=== PATIENT | female | born 1960 | race African-American/Black ===

== ENCOUNTER 2020-12-07 11:30 | Emergency (ER) | payer MEDICARE, MEDICAID ==
[~2020-12-07] VITALS: Ht 165.1 cm; Wt 77.0 kg
[~2020-12-07 11:30] MED LIST: AMLO10TA80 PO; ASPI-1497 PO; LEVO250T58 MT; LOSA25TA3 MT; METF-874 MT; METO25TA6 MT; OMEP40CA12 MT
[2020-12-07 13:19] LABS: BASOPHILS % 1.5 % (0.0-2.0); EOSINOPHILS % 5.1 % (0.0-5.0); HEMOGLOBIN. 8.7 g/dL (12.0-16.0); LYMPHOCYTES % 26.9 % (20.0-50.0); MEAN CORPUSCULAR HEMOGLOBIN 30.5 pg (28.0-32.0); MEAN CORPUSCULAR VOLUME 90.8 fL (81.0-99.0); MEAN PLATELET VOLUME 7.1 fl (7.4-10.4); MONOCYTES % 9.6 % (2.0-8.0); NEUTROPHILS % 56.9 % (40.0-76.0); PLATELET 249 x1000/uL (130-400); RED BLOOD CELL COUNT 2.86 mill/uL (4.2-5.4); RED CELL DISTRIBUTION WIDTH 14.9 % (11.6-14.6)
[2020-12-07 13:26] LABS: PROTHROMBIN TIME 11.1 sec (9.6-11.0)
[2020-12-07 16:09] VITALS: BP 135/58
== END 2020-12-07 16:09 | disposition home or self-care (01) ==
LOC: ER 11:30
DX: D64.9 Anemia, unspecified (principal); I12.0 Hypertensive chronic kidney disease with stage 5 chronic kidney disease or end stage renal disease; E11.22 Type 2 diabetes mellitus with diabetic chronic kidney disease; N18.6 End stage renal disease; Z99.2 Dependence on renal dialysis; Z79.82 Long term (current) use of aspirin; Z79.84 Long term (current) use of oral hypoglycemic drugs; Z86.73 Personal history of transient ischemic attack (TIA), and cerebral infarction without residual deficits; Z98.890 Other specified postprocedural states
CPT/HCPCS: 36415; 80048; 85025; 86850; 86900; 99283

== ENCOUNTER 2020-12-10 07:25 | Inpatient (IN) | payer MEDICARE, MEDICAID ==
[~2020-12-10] VITALS: Ht 162.6 cm; Wt 82.6 kg
[2020-12-10] MEDS ORDERED: NITROGLYCERIN 0.4MG TABLET SL SL PRN (08:15)
[2020-12-10] MEDS ORDERED: ASPIRIN 81MG TABLET PO ONE (08:15)
[2020-12-10 08:48] LABS: BASOPHILS % 0.8 % (0.0-2.0); EOSINOPHILS % 4.1 % (0.0-5.0); HEMATOCRIT. 25.7 % (36.0-48.0); HEMOGLOBIN. 8.2 g/dL (12.0-16.0); LYMPHOCYTES % 14.4 % (20.0-50.0); MEAN CORPUSCULAR HEMOGLOBIN 30.2 pg (28.0-32.0); MONOCYTES % 8.2 % (2.0-8.0); NEUTROPHILS % 72.5 % (40.0-76.0); PLATELET 229 x1000/uL (130-400); RED BLOOD CELL COUNT 2.73 mill/uL (4.2-5.4); RED CELL DISTRIBUTION WIDTH 15.1 % (11.6-14.6)
[2020-12-10 08:49] LABS: CHLORIDE 109 mEq/L (98-107)
[2020-12-10] MEDS ORDERED: HEPARIN 25,000 UNITS PREMIX 250 ML IV STA (09:43)
[2020-12-10] MEDS ORDERED: HEPARIN 5000 UNITS/ML VIAL IV ONE (09:45)
[2020-12-10 10:37] LABS: INR 1.1; PARTIAL THROMBOPLASTIN TIME 28.1 sec (23.4-31.0); PROTHROMBIN TIME 11.3 sec (9.6-11.0)
[2020-12-10] MEDS ORDERED: ACETAMINOPHEN 325MG TABLET PO PRN (14:00)
[2020-12-10] MEDS ORDERED: ONDANSETRON HCL 4MG/2ML INJ IV PRN (14:00)
[2020-12-10] MEDS: LOSARTAN POTASSIUM 25 MG TABLET PO SCH (14:30)
[2020-12-10] MEDS ORDERED: ENOXAPARIN 30MG/0.3ML SYR SUBCUT SCH (15:00)
[2020-12-10 16:15] VITALS: BP 159/69
[2020-12-10] MEDS ORDERED: HEPARIN BOLUS PRN aPTT <30 IV ×2 (16:45)
[2020-12-10] MEDS ORDERED: HEPARIN 25,000 UNITS PREMIX 250 ML IV SCH ×2 (16:45)
[2020-12-10] MEDS ORDERED: HEPARIN BOLUS PRN aPTT 30-44 IV ×2 (16:45)
[2020-12-10] MEDS ORDERED: HEPARIN 60 UNITS/KG BOLUS IV NR ×2 (16:45)
[2020-12-10] MEDS: AMLODIPINE 10MG TABLET PO SCH (16:52)
[2020-12-10] MEDS: ASPIRIN 81MG EC TABLET PO SCH (16:56)
[2020-12-10 17:44] LABS: HEPATITIS B SURFACE ANTIGEN NEGATIVE
[2020-12-10 18:00] VITALS: BP 168/56
[2020-12-10] MEDS: METOPROLOL TARTRATE 25MG TABLET PO SCH (18:00)
[2020-12-10 18:09] LABS: CREATINE KINASE MB FRACTION 3.3 ng/mL (0.5-3.6)
[2020-12-10 20:00] VITALS: BP 136/69
[2020-12-10 22:00] VITALS: BP 127/65
[2020-12-11] VITALS (12 sets, daily range): BP systolic 118–174; BP diastolic 48–93
[2020-12-11 00:41] LABS: CREATINE KINASE MB FRACTION 2.8 ng/mL (0.5-3.6)
[2020-12-11] MEDS: CLONIDINE 0.1MG TABLET PO PRN ×2 (04:23→08:41)
[2020-12-11 06:50] LABS: BASOPHILS % 1.1 % (0.0-2.0); EOSINOPHILS % 5.4 % (0.0-5.0); HEMOGLOBIN. 8.6 g/dL (12.0-16.0); LYMPHOCYTES % 22.9 % (20.0-50.0); MEAN CORPUSCULAR HEMOGLOBIN 30.2 pg (28.0-32.0); MEAN CORPUSCULAR VOLUME 94.8 fL (81.0-99.0); MEAN PLATELET VOLUME 7.1 fl (7.4-10.4); MONOCYTES % 8.7 % (2.0-8.0); NEUTROPHILS % 61.9 % (40.0-76.0); PLATELET 246 x1000/uL (130-400); RED BLOOD CELL COUNT 2.84 mill/uL (4.2-5.4); RED CELL DISTRIBUTION WIDTH 15.1 % (11.6-14.6)
[2020-12-11 07:12] LABS: PHOSPHORUS 3.8 mg/dL (2.5-4.9)
[2020-12-11] MEDS: ASPIRIN 81MG EC TABLET PO SCH (08:41)
[2020-12-11] MEDS: OMEPRAZOLE 20MG CAPSULE EXTENDED RELEASE PO SCH (08:41)
[2020-12-11] MEDS: AMLODIPINE 10MG TABLET PO SCH (08:41)
[2020-12-11] MEDS: LOSARTAN POTASSIUM 25 MG TABLET PO SCH (08:41)
[2020-12-11] MEDS: METOPROLOL TARTRATE 25MG TABLET PO SCH (08:42)
[2020-12-11] MEDS ORDERED: HYDRALAZINE 20MG/ML VIAL IV PRN (10:45)
[2020-12-11] MEDS: FERROUS SULFATE 325MG TABLET PO SCH ×2 (13:24→17:53)
[2020-12-11] MEDS: CLOPIDOGREL 75MG TABLET PO SCH (13:24)
[2020-12-11] MEDS: HYDRALAZINE HCL 50MG TABLET PO SCH ×3 (13:25→20:59)
[2020-12-11] MEDS ORDERED: HYDROCODONE/ACETAMINOPHEN 5/325MG TABLET PO PRN (16:15)
[2020-12-11] MEDS ORDERED: NALOXONE HCL 0.4MG/ML VIAL IV PRN (16:15)
[2020-12-11] MEDS ORDERED: ENOXAPARIN 80MG/0.8ML SYR SUBCUT NR (20:00)
[2020-12-11] MEDS: EPOETIN ALFA-EPBX 4,000 UNIT/ML VIAL SUBCUT SCH (20:52)
[2020-12-11] MEDS: CARVEDILOL 3.125 MG TABLET PO SCH (20:54)
[2020-12-11] MEDS: ATORVASTATIN CALCIUM 40MG TABLET PO SCH (20:54)
[2020-12-12] VITALS (11 sets, daily range): BP systolic 71–167; BP diastolic 56–105
[2020-12-12 05:19] LABS: BASOPHILS % 0.9 % (0.0-2.0); EOSINOPHILS % 7.2 % (0.0-5.0); HEMATOCRIT. 25.4 % (36.0-48.0); HEMOGLOBIN. 8.2 g/dL (12.0-16.0); LYMPHOCYTES % 26.8 % (20.0-50.0); MEAN CORPUSCULAR HEMOGLOBIN 30.8 pg (28.0-32.0); MEAN CORPUSCULAR VOLUME 95.4 fL (81.0-99.0); MEAN PLATELET VOLUME 7.1 fl (7.4-10.4); MONOCYTES % 10.9 % (2.0-8.0); NEUTROPHILS % 54.2 % (40.0-76.0); PLATELET 237 x1000/uL (130-400); RED BLOOD CELL COUNT 2.66 mill/uL (4.2-5.4); RED CELL DISTRIBUTION WIDTH 15.3 % (11.6-14.6)
[2020-12-12] MEDS: HYDRALAZINE HCL 50MG TABLET PO SCH ×3 (05:55→21:08)
[2020-12-12] MEDS: OMEPRAZOLE 20MG CAPSULE EXTENDED RELEASE PO SCH (09:10)
[2020-12-12] MEDS: ASPIRIN 81MG EC TABLET PO SCH (09:10)
[2020-12-12] MEDS: AMLODIPINE 10MG TABLET PO SCH (09:10)
[2020-12-12] MEDS: CLOPIDOGREL 75MG TABLET PO SCH (09:10)
[2020-12-12] MEDS: FERROUS SULFATE 325MG TABLET PO SCH ×4 (09:10→18:23)
[2020-12-12] MEDS: LOSARTAN POTASSIUM 25 MG TABLET PO SCH (09:11)
[2020-12-12] MEDS: CARVEDILOL 3.125 MG TABLET PO SCH ×2 (09:11→21:00)
[2020-12-12] MEDS ORDERED: MIDAZOLAM HCL 2 MG/2 ML VIAL ONE (12:48)
[2020-12-12] MEDS ORDERED: LIDOCAINE HCL 1% 20ML VIAL (Pyxis) INJ ONE ×2 (12:49→13:25)
[2020-12-12] MEDS ORDERED: IODIXANOL 320MG/ML 100 ML BOTTLE IV ONE ×2 (12:49→12:52)
[2020-12-12] MEDS ORDERED: FENTANYL CITRATE/PF 50MCG/ML 2ML VIAL ONE (12:49)
[2020-12-12] MEDS ORDERED: HEPARIN SODIUM 1,000 UNIT/1ML VIAL IV ONE (13:41)
[2020-12-12] MEDS ORDERED: NICARDIPINE 100MCG/ML 10ML VIAL (CATH LAB) IV ONE (13:41)
[2020-12-12] MEDS ORDERED: NITROGLYCERIN 50MCG/ML 10ML VIAL (CATH LAB) IV ONE (13:41)
[2020-12-12] MEDS ORDERED: ACETAMINOPHEN 325MG TABLET PO PRN ×2 (13:45→16:45)
[2020-12-12] MEDS ORDERED: ATROPINE SULFATE 1MG/10ML SYR IV PRN (13:45)
[2020-12-12] MEDS ORDERED: DEXTROSE 50% WATER 50ML SYRINGE IV PRN (21:00)
[2020-12-12] MEDS: BLOOD SUGAR DIAGNOSTIC STRIP TEST SCH (21:00)
[2020-12-12] MEDS: INSULIN LISPRO 100 UNITS/ML SUBCUT SCH (21:00)
[2020-12-12] MEDS: ATORVASTATIN CALCIUM 40MG TABLET PO SCH (21:11)
[2020-12-13] VITALS (12 sets, daily range): BP systolic 129–165; BP diastolic 32–116
[2020-12-13 01:33] LABS: CLARITY URINE CLOUDY (CLEAR); COLOR URINE YELLOW (YELLOW); KETONES URINE NEGATIVE (NEGATIVE); LEUKOCYTE ESTERASE URINE 1+ (NEGATIVE); NITRITE URINE NEGATIVE (NEGATIVE); OCCULT BLOOD URINE TRACE (NEGATIVE); PH URINE 8.5 (4.5-8.0); PROTEIN URINE 2+ (NEGATIVE); SPECIFIC GRAVITY URINE 1.011 (1.005-1.030)
[2020-12-13 02:01] LABS: *AMPHETAMINES SCREEN URINE NEGATIVE (NEGATIVE); *BARBITURATES SCREEN URINE NEGATIVE (NEGATIVE); *BENZODIAZEPINES SCREEN URINE PRESUMTIVE POSITIVE (NEGATIVE); *COCAINE SCREEN URINE NEGATIVE (NEGATIVE); CANNABINOID URINE SCREEN NEGATIVE (NEGATIVE); METHADONE URINE SCREEN NEGATIVE (NEGATIVE); OPIATES URINE SCREEN NEGATIVE (NEGATIVE)
[2020-12-13 02:04] LABS: PHENCYCLIDINE URINE SCREEN NEGATIVE (NEGATIVE)
[2020-12-13] MEDS: HYDRALAZINE HCL 50MG TABLET PO SCH ×3 (06:29→21:46)
[2020-12-13] MEDS: OMEPRAZOLE 20MG CAPSULE EXTENDED RELEASE PO SCH (06:30)
[2020-12-13] MEDS: INSULIN LISPRO 100 UNITS/ML SUBCUT SCH ×4 (06:30→21:00)
[2020-12-13] MEDS: BLOOD SUGAR DIAGNOSTIC STRIP TEST SCH ×4 (06:30→21:00)
[2020-12-13] MEDS: CARVEDILOL 3.125 MG TABLET PO SCH ×3 (08:41→21:46)
[2020-12-13] MEDS: FERROUS SULFATE 325MG TABLET PO SCH ×3 (08:41→17:53)
[2020-12-13] MEDS: AMLODIPINE 10MG TABLET PO SCH (08:41)
[2020-12-13] MEDS: LOSARTAN POTASSIUM 25 MG TABLET PO SCH (08:41)
[2020-12-13] MEDS: ASPIRIN 81MG EC TABLET PO SCH (08:41)
[2020-12-13 10:36] LABS: BASOPHILS % 0.8 % (0.0-2.0); EOSINOPHILS % 3.7 % (0.0-5.0); HEMATOCRIT. 28.1 % (36.0-48.0); HEMOGLOBIN. 9.1 g/dL (12.0-16.0); LYMPHOCYTES % 11.3 % (20.0-50.0); MEAN CORPUSCULAR HEMOGLOBIN 29.9 pg (28.0-32.0); MEAN CORPUSCULAR VOLUME 92.2 fL (81.0-99.0); MEAN PLATELET VOLUME 7.2 fl (7.4-10.4); MONOCYTES % 7.7 % (2.0-8.0); NEUTROPHILS % 76.5 % (40.0-76.0); PLATELET 255 x1000/uL (130-400); RED BLOOD CELL COUNT 3.05 mill/uL (4.2-5.4); RED CELL DISTRIBUTION WIDTH 15.3 % (11.6-14.6)
[2020-12-13] MEDS: ATORVASTATIN CALCIUM 40MG TABLET PO SCH (21:45)
[2020-12-13] MEDS: EPOETIN ALFA-EPBX 4,000 UNIT/ML VIAL SUBCUT SCH (21:47)
[2020-12-14] VITALS (15 sets, daily range): BP systolic 114–185; BP diastolic 41–84
[2020-12-14] MEDS: HYDRALAZINE HCL 50MG TABLET PO SCH ×3 (05:27→21:40)
[2020-12-14] MEDS: BLOOD SUGAR DIAGNOSTIC STRIP TEST SCH ×4 (06:03→20:25)
[2020-12-14] MEDS: INSULIN LISPRO 100 UNITS/ML SUBCUT SCH ×4 (07:20→20:25)
[2020-12-14] MEDS: LOSARTAN POTASSIUM 25 MG TABLET PO SCH (09:08)
[2020-12-14] MEDS: FERROUS SULFATE 325MG TABLET PO SCH ×3 (09:08→18:31)
[2020-12-14] MEDS: CARVEDILOL 3.125 MG TABLET PO SCH ×2 (09:08→21:40)
[2020-12-14] MEDS: ASPIRIN 81MG EC TABLET PO SCH (09:08)
[2020-12-14] MEDS: AMLODIPINE 10MG TABLET PO SCH (09:08)
[2020-12-14] MEDS: FAMOTIDINE 20MG TABLET PO SCH (09:09)
[2020-12-14 10:52] LABS: BASOPHILS % 0.9 % (0.0-2.0); HEMATOCRIT. 34.9 % (36.0-48.0); HEMOGLOBIN. 11.6 g/dL (12.0-16.0); LYMPHOCYTES % 13.8 % (20.0-50.0); MEAN CORPUSCULAR HEMOGLOBIN 30.8 pg (28.0-32.0); MEAN CORPUSCULAR VOLUME 92.7 fL (81.0-99.0); MEAN PLATELET VOLUME 6.9 fl (7.4-10.4); MONOCYTES % 9.6 % (2.0-8.0); NEUTROPHILS % 70.7 % (40.0-76.0); PLATELET 214 x1000/uL (130-400); RED BLOOD CELL COUNT 3.76 mill/uL (4.2-5.4); RED CELL DISTRIBUTION WIDTH 14.9 % (11.6-14.6)
[2020-12-14] MEDS ORDERED: CHLORHEXIDINE GLUCONATE 4% EXTERNAL USE TOP SCH (21:00)
[2020-12-14] MEDS ORDERED: DOCUSATE SODIUM 100MG CAPSULE PO SCH (21:00)
[2020-12-14] MEDS ORDERED: BISACODYL 10MG SUPP PR PRN (21:00)
[2020-12-14] MEDS ORDERED: ASCORBIC ACID 500 MG TABLET PO SCH (21:00)
[2020-12-14] MEDS ORDERED: DIPHENHYDRAMINE 25MG CAPSULE PO PRN (21:00)
[2020-12-14] MEDS: ALLOPURINOL 300 MG TABLET PO SCH (21:40)
[2020-12-14] MEDS: ATORVASTATIN CALCIUM 40MG TABLET PO SCH (21:40)
[2020-12-15] VITALS (47 sets, daily range): BP systolic 20–166; BP diastolic 13–159
[2020-12-15] MEDS ORDERED: BACITRACIN 15GM TUBE TOP ONE (05:26)
[2020-12-15] MEDS ORDERED: THROMBIN (BOVINE) 5000 UNITS/VIAL TOP ONE (05:26)
[2020-12-15] MEDS ORDERED: POLYMYXIN B SULFATE 500000 UNITS/VIAL ONE (05:27)
[2020-12-15] MEDS ORDERED: DOPAMINE 400MG/250ML PREMIX 250 ML IV ONE (05:27)
[2020-12-15] MEDS ORDERED: HEPARIN 1000 UNITS/ML 10ML ONE (05:29)
[2020-12-15] MEDS: HYDRALAZINE HCL 50MG TABLET PO SCH ×3 (05:30→21:07)
[2020-12-15] MEDS: ALLOPURINOL 300 MG TABLET PO SCH (05:30)
[2020-12-15] MEDS ORDERED: NICARDIPINE 50 MG in NS 230 ML IV SCH (06:00)
[2020-12-15] MEDS ORDERED: AMINOCAPROIC ACID 5,000 MG in SODIUM CHLORIDE 0.9% 230 ML IV SCH (06:00)
[2020-12-15] MEDS ORDERED: PAPAVERINE HCL 180MG in SODIUM CHLORIDE 0.9% 24ML IV SCH (06:00)
[2020-12-15] MEDS ORDERED: NOREPINEPHRINE 8 MG in DEXT 5% WATER 242 ML IV SCH (06:00)
[2020-12-15] MEDS ORDERED: DEL NIDO ELECTROLYTE-S(PH 7.4) 1,000 ML IV SCH ×2 (06:00)
[2020-12-15] MEDS ORDERED: CEFAZOLIN 2,000 MG in DEXT 5% WATER 100 ML IV SCH (06:00)
[2020-12-15] MEDS ORDERED: EPINEPHRINE 5 MG in DEXT 5% WATER 245 ML IV SCH ×2 (06:00→12:00)
[2020-12-15] MEDS ORDERED: INSULIN REGULAR (DRIP) 100 UNITS in SODIUM CHLORIDE 0.9% 99 ML IV SCH (06:00)
[2020-12-15] MEDS: BLOOD SUGAR DIAGNOSTIC STRIP TEST SCH ×13 (06:12→23:00)
[2020-12-15] MEDS ORDERED: SKIN ADHESIVE 0.7 GM EA TOP ONE (07:01)
[2020-12-15] MEDS ORDERED: HYDROMORPHONE HCL/PF 2MG/ML (OR) ONE (07:10)
[2020-12-15] MEDS ORDERED: MIDAZOLAM HCL 2 MG/2 ML VIAL ONE (07:10)
[2020-12-15] MEDS ORDERED: HEPARIN 10,000 UNITS/ML VIAL ONE ×2 (07:13→13:24)
[2020-12-15 07:14] LABS: HEMATOCRIT 35.6 % (36.0-48.0); HEMOGLOBIN 11.7 g/dL (12.0-16.0); MEAN CORPUSCULAR HEMOGLOBIN 30.4 pg (28.0-32.0); MEAN CORPUSCULAR VOLUME 93.1 fL (81.0-99.0); PLATELET 232 x1000/uL (130-400); RED BLOOD CELL COUNT 3.83 mill/uL (4.2-5.4); RED CELL DISTRIBUTION WIDTH 15.3 % (11.6-14.6)
[2020-12-15] MEDS: FERROUS SULFATE 325MG TABLET PO SCH ×3 (07:20→18:17)
[2020-12-15] MEDS ORDERED: POTASSIUM CHLORIDE 10MEQ IN WATER 50ML PREMIX IV ONE (08:53)
[2020-12-15] MEDS: AMLODIPINE 10MG TABLET PO SCH (09:00)
[2020-12-15] MEDS: CARVEDILOL 3.125 MG TABLET PO SCH ×2 (09:00→20:45)
[2020-12-15] MEDS ORDERED: CHLORHEXIDINE GLUCONATE 4% EXTERNAL USE TOP SCH (09:00)
[2020-12-15] MEDS: LOSARTAN POTASSIUM 25 MG TABLET PO SCH (09:00)
[2020-12-15] MEDS ORDERED: PROPOFOL 200MG/20ML VIAL IV ONE ×2 (09:08→10:09)
[2020-12-15] MEDS ORDERED: ONDANSETRON HCL 4MG/2ML INJ ONE (09:08)
[2020-12-15] MEDS ORDERED: DEXAMETHASONE 4MG/ML 1ML VIAL ONE (09:08)
[2020-12-15] MEDS ORDERED: DEXTROSE 50% WATER 50ML SYRINGE IV PRN ×2 (09:15)
[2020-12-15] MEDS ORDERED: KCL 10MEQ/50ML PREMIX 150 ML IV PRN (09:15)
[2020-12-15] MEDS ORDERED: KCL 10MEQ/50ML PREMIX 100 ML IV PRN (09:15)
[2020-12-15] MEDS ORDERED: KCL 10MEQ/50ML PREMIX 200 ML IV PRN (09:15)
[2020-12-15] MEDS ORDERED: ROCURONIUM BROMIDE 10MG/ML VIAL 5ML IV ONE ×2 (10:06→10:08)
[2020-12-15] MEDS ORDERED: ETOMIDATE 2MG/ML 10ML VIAL IV ONE (10:11)
[2020-12-15] MEDS ORDERED: NEOSTIGMINE METHYLSULFATE 1MG/ML 10 ML VIAL ONE (10:59)
[2020-12-15] MEDS ORDERED: MORPHINE SULFATE 2 MG/ML CPJ (NOT FOR IM USE) IV PRN (11:45)
[2020-12-15] MEDS ORDERED: MAGNESIUM 2 G PREMIX 50 ML IV PRN (11:45)
[2020-12-15] MEDS ORDERED: SODIUM CHLORIDE 0.9% 500 ML IV PRN (11:45)
[2020-12-15] MEDS ORDERED: KETOROLAC 30MG/ML VIAL IV PRN (11:45)
[2020-12-15] MEDS ORDERED: OXYCODONE HCL/ACETAMINOPHEN 5/325MG TABLET PO PRN (11:45)
[2020-12-15] MEDS ORDERED: MAGNESIUM SULFATE 3 GM in DEXT 5% WATER 100 ML IV PRN (11:45)
[2020-12-15] MEDS ORDERED: CALCIUM CHLORIDE 3,000 MG in DEXT 5% WATER 250 ML IV PRN (11:45)
[2020-12-15] MEDS ORDERED: FAMOTIDINE 20MG/2ML VIAL IV SCH (11:45)
[2020-12-15] MEDS ORDERED: MAGNESIUM 1 G PREMIX 100 ML IV PRN (11:45)
[2020-12-15] MEDS ORDERED: ONDANSETRON HCL 4MG/2ML INJ IV PRN (11:45)
[2020-12-15] MEDS ORDERED: ACETAMINOPHEN 325MG TABLET PO PRN (11:45)
[2020-12-15] MEDS ORDERED: ALBUMIN HUMAN 25GM/100ML (25%) IV PRN (11:45)
[2020-12-15] MEDS ORDERED: INSULIN REGULAR (DRIP) 100 UNITS in SODIUM CHLORIDE 0.9% 100 ML IV SCH (12:00)
[2020-12-15] MEDS: DOPAMINE 400MG/250ML PREMIX 250 ML IV SCH (12:12)
[2020-12-15] MEDS: DEXT 5%/0.45% NACL 1000ML 1,000 ML IV SCH (12:18)
[2020-12-15 12:47] LABS: BG BASE EXCESS -9.3 mmol/L (-2.0-2.0); BG CARBOXYHEMOGLOBIN 0.9 % (0.5-1.5); BG DEOXYHEMOGLOBIN 7.7 % (0.0-5.0); BG HCO3 ACT 19.7 mmol/L (22.0-26.0); BG METHEMOGLOBIN 0.3 % (0.0-1.5); BG OXYGEN SATURATION 92.2 % (92.0-98.5); BG OXYHEMOGLOBIN 91.1 % (94.0-97.0); BG PCO2 56.2 mmHg (35.0-45.0); BG PH 7.163 (7.350-7.450); BG PO2 81.8 mmHg (75.0-100.0); BG SAMPLE SITE RIGHT BRACHIAL; BG VENT MODE MASK - SIMPLE
[2020-12-15 12:49] LABS: BASOPHILS % 0.8 % (0.0-2.0); EOSINOPHILS % 0.9 % (0.0-5.0); HEMATOCRIT. 35.6 % (36.0-48.0); HEMOGLOBIN. 11.5 g/dL (12.0-16.0); LYMPHOCYTES % 11.6 % (20.0-50.0); MEAN CORPUSCULAR HEMOGLOBIN 30.3 pg (28.0-32.0); MEAN CORPUSCULAR VOLUME 93.9 fL (81.0-99.0); MEAN PLATELET VOLUME 6.8 fl (7.4-10.4); MONOCYTES % 5.3 % (2.0-8.0); NEUTROPHILS % 81.4 % (40.0-76.0); PLATELET 285 x1000/uL (130-400); RED BLOOD CELL COUNT 3.79 mill/uL (4.2-5.4); RED CELL DISTRIBUTION WIDTH 14.8 % (11.6-14.6)
[2020-12-15] MEDS ORDERED: SODIUM BICARBONATE 8.4% 1 MEQ/ML 50ML SYR IV SCH (13:15)
[2020-12-15] MEDS ORDERED: MAGNESIUM SULFATE 5GM/10ML VIAL IV ONE (13:24)
[2020-12-15 14:18] LABS: BG BASE EXCESS -6.9 mmol/L (-2.0-2.0); BG CARBOXYHEMOGLOBIN 0.5 % (0.5-1.5); BG DEOXYHEMOGLOBIN 9.2 % (0.0-5.0); BG FRACTION INSPIRED OXYGEN 60; BG HCO3 ACT 20.4 mmol/L (22.0-26.0); BG METHEMOGLOBIN 0.3 % (0.0-1.5); BG OXYGEN SATURATION 90.7 % (92.0-98.5); BG PCO2 48.9 mmHg (35.0-45.0); BG PH 7.239 (7.350-7.450); BG PO2 70.1 mmHg (75.0-100.0); BG SAMPLE SITE RIGHT RADIAL; BG TOTAL HEMOGLOBIN 11.2 g/dL (12.0-18.0); BG VENT MODE MASK - SIMPLE
[2020-12-15] MEDS: CLOPIDOGREL 75MG TABLET PO SCH (14:31)
[2020-12-15] MEDS: FAMOTIDINE 20MG TABLET PO SCH (14:31)
[2020-12-15] MEDS: ASPIRIN 81MG EC TABLET PO SCH (14:31)
[2020-12-15] MEDS: DOCUSATE SODIUM 100MG CAPSULE PO SCH (16:05)
[2020-12-15] MEDS: BACITRACIN 15GM TUBE TOP SCH (16:25)
[2020-12-15] MEDS: IPRATROPIUM/ALBUTEROL 0.5-3(2.5)MG/3ML NEB HHN SCH ×2 (17:58→20:23)
[2020-12-15 19:44] LABS: BG CARBOXYHEMOGLOBIN 0.4 % (0.5-1.5); BG DEOXYHEMOGLOBIN 6.2 % (0.0-5.0); BG FRACTION INSPIRED OXYGEN 32; BG HCO3 ACT 24.8 mmol/L (22.0-26.0); BG METHEMOGLOBIN 0.3 % (0.0-1.5); BG OXYGEN SATURATION 93.8 % (92.0-98.5); BG OXYHEMOGLOBIN 93.1 % (94.0-97.0); BG PCO2 41.1 mmHg (35.0-45.0); BG PH 7.399 (7.350-7.450); BG SAMPLE SITE RIGHT RADIAL; BG TOTAL HEMOGLOBIN 10.3 g/dL (12.0-18.0); BG VENT MODE NASAL CANNULA
[2020-12-15 19:59] LABS: HEMOGLOBIN. 7.6 g/dL (12.0-16.0); MEAN CORPUSCULAR HEMOGLOBIN 31.2 pg (28.0-32.0); MEAN CORPUSCULAR VOLUME 94.3 fL (81.0-99.0); MEAN PLATELET VOLUME 6.9 fl (7.4-10.4); PLATELET 128 x1000/uL (130-400); RED BLOOD CELL COUNT 2.44 mill/uL (4.2-5.4)
[2020-12-15 20:08] LABS: PHOSPHORUS 1.8 mg/dL (2.5-4.9)
[2020-12-15] MEDS: ATORVASTATIN CALCIUM 40MG TABLET PO SCH (20:45)
[2020-12-15] MEDS: OXYCODONE HCL/ACETAMINOPHEN 5/325MG TABLET PO PRN (21:06)
[2020-12-15 22:25] LABS: PLATELET ESTIMATE SLIGHTLY DECREASED
[2020-12-16] VITALS (75 sets, daily range): BP systolic 63–143; BP diastolic 34–100
[2020-12-16] MEDS: IPRATROPIUM/ALBUTEROL 0.5-3(2.5)MG/3ML NEB HHN SCH ×2 (00:40→04:18)
[2020-12-16] MEDS: BLOOD SUGAR DIAGNOSTIC STRIP TEST SCH ×17 (01:00→21:07)
[2020-12-16 05:09] LABS: BASOPHILS % 0.5 % (0.0-2.0); EOSINOPHILS % 0.2 % (0.0-5.0); HEMATOCRIT. 26.8 % (36.0-48.0); HEMOGLOBIN. 8.7 g/dL (12.0-16.0); LYMPHOCYTES % 11.9 % (20.0-50.0); MEAN CORPUSCULAR HEMOGLOBIN 30.6 pg (28.0-32.0); MEAN CORPUSCULAR VOLUME 93.8 fL (81.0-99.0); MONOCYTES % 12.5 % (2.0-8.0); NEUTROPHILS % 74.9 % (40.0-76.0); RED BLOOD CELL COUNT 2.86 mill/uL (4.2-5.4); RED CELL DISTRIBUTION WIDTH 15.3 % (11.6-14.6)
[2020-12-16 05:29] LABS: PHOSPHORUS 3.5 mg/dL (2.5-4.9)
[2020-12-16 05:55] LABS: MEAN PLATELET VOLUME 7.7 fl (7.4-10.4); PLATELET 162 x1000/uL (130-400)
[2020-12-16] MEDS: HYDRALAZINE HCL 50MG TABLET PO SCH ×3 (06:00→22:23)
[2020-12-16] MEDS ORDERED: SODIUM POLYSTYRENE SULFONATE 15 G/60 ML BOT PO ONE (06:15)
[2020-12-16] MEDS ORDERED: CEFAZOLIN 1000MG PREMIX 50 ML IV SCH (08:00)
[2020-12-16] MEDS: LOSARTAN POTASSIUM 25 MG TABLET PO SCH (08:16)
[2020-12-16] MEDS: AMLODIPINE 10MG TABLET PO SCH (08:16)
[2020-12-16] MEDS: CARVEDILOL 3.125 MG TABLET PO SCH ×2 (08:17→21:07)
[2020-12-16] MEDS: FERROUS SULFATE 325MG TABLET PO SCH ×3 (08:25→17:24)
[2020-12-16] MEDS: FAMOTIDINE 20MG TABLET PO SCH (08:25)
[2020-12-16] MEDS: ASPIRIN 81MG EC TABLET PO SCH (08:25)
[2020-12-16] MEDS: DOCUSATE SODIUM 100MG CAPSULE PO SCH (08:26)
[2020-12-16] MEDS: BACITRACIN 15GM TUBE TOP SCH ×2 (08:26→17:24)
[2020-12-16] MEDS: CLOPIDOGREL 75MG TABLET PO SCH (08:26)
[2020-12-16] MEDS: OXYCODONE HCL/ACETAMINOPHEN 5/325MG TABLET PO PRN (10:32)
[2020-12-16] MEDS: DOPAMINE 400MG/250ML PREMIX 250 ML IV SCH (11:17)
[2020-12-16] MEDS ORDERED: IPRATROPIUM/ALBUTEROL 0.5-3(2.5)MG/3ML NEB HHN PRN (12:45)
[2020-12-16] MEDS: DEXT 5%/0.45% NACL 1000ML 1,000 ML IV SCH (12:52)
[2020-12-16] MEDS ORDERED: FAMOTIDINE 20MG TABLET PO SCH (14:00)
[2020-12-16] MEDS ORDERED: ASPIRIN 81MG TABLET PO SCH (14:00)
[2020-12-16 15:36] LABS: BG BASE EXCESS 0.4 mmol/L (-2.0-2.0); BG CARBOXYHEMOGLOBIN 0.8 % (0.5-1.5); BG DEOXYHEMOGLOBIN 6.5 % (0.0-5.0); BG FRACTION INSPIRED OXYGEN 28; BG HCO3 ACT 24.8 mmol/L (22.0-26.0); BG METHEMOGLOBIN 0.3 % (0.0-1.5); BG OXYGEN SATURATION 93.4 % (92.0-98.5); BG OXYHEMOGLOBIN 92.4 % (94.0-97.0); BG PH 7.421 (7.350-7.450); BG PO2 68.8 mmHg (75.0-100.0); BG SAMPLE SITE RIGHT RADIAL; BG VENT MODE NASAL CANNULA
[2020-12-16] MEDS: INSULIN LISPRO 100 UNITS/ML SUBCUT SCH ×2 (17:20→21:25)
[2020-12-16] MEDS: DOCUSATE SODIUM 250MG CAPSULE PO SCH (17:24)
[2020-12-16] MEDS: ATORVASTATIN CALCIUM 40MG TABLET PO SCH (21:06)
[2020-12-17] VITALS (12 sets, daily range): BP systolic 91–127; BP diastolic 45–73
[2020-12-17] MEDS: HYDRALAZINE HCL 50MG TABLET PO SCH ×3 (05:25→22:00)
[2020-12-17 06:17] LABS: BASOPHILS % 0.4 % (0.0-2.0); EOSINOPHILS % 1.7 % (0.0-5.0); HEMATOCRIT. 30.3 % (36.0-48.0); HEMOGLOBIN. 9.6 g/dL (12.0-16.0); LYMPHOCYTES % 14.6 % (20.0-50.0); MEAN CORPUSCULAR HEMOGLOBIN 30.5 pg (28.0-32.0); MEAN CORPUSCULAR VOLUME 96.6 fL (81.0-99.0); MEAN PLATELET VOLUME 7.5 fl (7.4-10.4); MONOCYTES % 13.2 % (2.0-8.0); NEUTROPHILS % 70.1 % (40.0-76.0); PLATELET 167 x1000/uL (130-400); RED BLOOD CELL COUNT 3.14 mill/uL (4.2-5.4); RED CELL DISTRIBUTION WIDTH 15.5 % (11.6-14.6)
[2020-12-17] MEDS: BLOOD SUGAR DIAGNOSTIC STRIP TEST SCH ×4 (06:40→20:26)
[2020-12-17] MEDS: INSULIN LISPRO 100 UNITS/ML SUBCUT SCH ×4 (07:20→20:39)
[2020-12-17] MEDS: DOCUSATE SODIUM 250MG CAPSULE PO SCH ×2 (08:26→16:43)
[2020-12-17] MEDS: BACITRACIN 15GM TUBE TOP SCH ×2 (08:26→16:43)
[2020-12-17] MEDS: FERROUS SULFATE 325MG TABLET PO SCH ×3 (08:26→16:43)
[2020-12-17] MEDS: ASPIRIN 81MG EC TABLET PO SCH (08:26)
[2020-12-17] MEDS: CARVEDILOL 3.125 MG TABLET PO SCH ×2 (08:27→20:25)
[2020-12-17] MEDS: FAMOTIDINE 20MG TABLET PO SCH (08:27)
[2020-12-17] MEDS: CLOPIDOGREL 75MG TABLET PO SCH (08:27)
[2020-12-17 09:45] LABS: BG BASE EXCESS 0.8 mmol/L (-2.0-2.0); BG CARBOXYHEMOGLOBIN 0.3 % (0.5-1.5); BG DEOXYHEMOGLOBIN 10.1 % (0.0-5.0); BG FRACTION INSPIRED OXYGEN 21; BG HCO3 ACT 25.2 mmol/L (22.0-26.0); BG OXYGEN SATURATION 89.9 % (92.0-98.5); BG OXYHEMOGLOBIN 89.6 % (94.0-97.0); BG PCO2 39.4 mmHg (35.0-45.0); BG PH 7.424 (7.350-7.450); BG PO2 58.1 mmHg (75.0-100.0); BG SAMPLE SITE RIGHT RADIAL; BG VENT MODE ROOM AIR
[2020-12-17] MEDS ORDERED: MAGNESIUM 2 G PREMIX 50 ML IV ONE (13:30)
[2020-12-17] MEDS: ATORVASTATIN CALCIUM 40MG TABLET PO SCH (20:25)
[2020-12-17] MEDS: OXYCODONE HCL/ACETAMINOPHEN 5/325MG TABLET PO PRN (20:25)
[2020-12-18] VITALS (15 sets, daily range): BP systolic 87–187; BP diastolic 53–144
[2020-12-18] MEDS: HYDRALAZINE HCL 50MG TABLET PO SCH ×2 (05:35→15:09)
[2020-12-18] MEDS: OXYCODONE HCL/ACETAMINOPHEN 5/325MG TABLET PO PRN (05:55)
[2020-12-18] MEDS: BLOOD SUGAR DIAGNOSTIC STRIP TEST SCH ×3 (06:52→16:50)
[2020-12-18 07:01] LABS: BASOPHILS % 0.6 % (0.0-2.0); EOSINOPHILS % 8.2 % (0.0-5.0); HEMATOCRIT. 25.4 % (36.0-48.0); HEMOGLOBIN. 8.5 g/dL (12.0-16.0); LYMPHOCYTES % 19.8 % (20.0-50.0); MEAN CORPUSCULAR HEMOGLOBIN 30.5 pg (28.0-32.0); MEAN CORPUSCULAR VOLUME 91.3 fL (81.0-99.0); MEAN PLATELET VOLUME 7.1 fl (7.4-10.4); MONOCYTES % 12.4 % (2.0-8.0); PLATELET 195 x1000/uL (130-400); RED BLOOD CELL COUNT 2.78 mill/uL (4.2-5.4); RED CELL DISTRIBUTION WIDTH 14.8 % (11.6-14.6)
[2020-12-18 07:14] LABS: PHOSPHORUS 5.7 mg/dL (2.5-4.9)
[2020-12-18] MEDS: INSULIN LISPRO 100 UNITS/ML SUBCUT SCH ×3 (07:20→17:58)
[2020-12-18] MEDS: FERROUS SULFATE 325MG TABLET PO SCH ×3 (09:02→18:05)
[2020-12-18] MEDS: BACITRACIN 15GM TUBE TOP SCH ×2 (09:02→18:05)
[2020-12-18] MEDS: CLOPIDOGREL 75MG TABLET PO SCH (09:02)
[2020-12-18] MEDS: FAMOTIDINE 20MG TABLET PO SCH (09:02)
[2020-12-18] MEDS: DOCUSATE SODIUM 250MG CAPSULE PO SCH ×2 (09:02→18:05)
[2020-12-18] MEDS: ASPIRIN 81MG EC TABLET PO SCH (09:02)
[2020-12-18] MEDS: CARVEDILOL 3.125 MG TABLET PO SCH (09:03)
[2020-12-18] MEDS ORDERED: LACTULOSE 20G/30ML UDC PO NR (12:45)
[2020-12-18] MEDS ORDERED: HEPARIN SODIUM 1,000 UNIT/1ML VIAL IV NR (14:30)
[2020-12-18] MEDS ORDERED: COR3 MT (14:48)
[2020-12-18] MEDS ORDERED: CLOP75TA4 MT (14:48)
[2020-12-18] MEDS ORDERED: LIP40 MT (14:48)
[2020-12-18] MEDS ORDERED: ASPI-1497 MT (14:48)
[2020-12-18] MEDS ORDERED: EPOETIN ALFA-EPBX 4,000 UNIT/ML VIAL SUBCUT SCH (21:00)
== END 2020-12-18 20:59 | disposition home health service (06) | DRG 233 ==
LOC: ER 07:50 → MICUSO 10:56 → 5EST 13:39 → 3WST 12-12 16:33 → CVICU 12-15 08:31 → 3WST 12-16 19:04
PROVIDERS: ADMIT Internal Medicine; ATTEND Internal Medicine
PROC: 5A1D70Z Performance of Urinary Filtration, Intermittent, Less than 6 Hours Per Day (ICD-10-PCS; 2020-12-10)
PROC: 5A1D70Z Performance of Urinary Filtration, Intermittent, Less than 6 Hours Per Day (ICD-10-PCS; 2020-12-11)
PROC: 4A023N7 Measurement of Cardiac Sampling and Pressure, Left Heart, Percutaneous Approach (ICD-10-PCS; 2020-12-12)
PROC: B211YZZ Fluoroscopy of Multiple Coronary Arteries using Other Contrast (ICD-10-PCS; 2020-12-12)
PROC: B215YZZ Fluoroscopy of Left Heart using Other Contrast (ICD-10-PCS; 2020-12-12)
PROC: 5A1D70Z Performance of Urinary Filtration, Intermittent, Less than 6 Hours Per Day (ICD-10-PCS; 2020-12-13)
PROC: 30233N1 Transfusion of Nonautologous Red Blood Cells into Peripheral Vein, Percutaneous Approach (ICD-10-PCS; 2020-12-14)
PROC: 021309W Bypass Coronary Artery, Four or More Arteries from Aorta with Autologous Venous Tissue, Open Approach (ICD-10-PCS; principal; 2020-12-15)
PROC: 02100Z9 Bypass Coronary Artery, One Artery from Left Internal Mammary, Open Approach (ICD-10-PCS; 2020-12-15)
PROC: 06BQ4ZZ Excision of Left Saphenous Vein, Percutaneous Endoscopic Approach (ICD-10-PCS; 2020-12-15)
PROC: 5A1D70Z Performance of Urinary Filtration, Intermittent, Less than 6 Hours Per Day (ICD-10-PCS; 2020-12-15)
PROC: 5A1D70Z Performance of Urinary Filtration, Intermittent, Less than 6 Hours Per Day (ICD-10-PCS; 2020-12-16)
PROC: 5A1D70Z Performance of Urinary Filtration, Intermittent, Less than 6 Hours Per Day (ICD-10-PCS; 2020-12-17)
DX: I21.4 Non-ST elevation (NSTEMI) myocardial infarction (principal); I50.23 Acute on chronic systolic (congestive) heart failure; N18.6 End stage renal disease; I42.9 Cardiomyopathy, unspecified; I69.351 Hemiplegia and hemiparesis following cerebral infarction affecting right dominant side; I13.2 Hypertensive heart and chronic kidney disease with heart failure and with stage 5 chronic kidney disease, or end stage renal disease; E87.2 Acidosis; I34.0 Nonrheumatic mitral (valve) insufficiency; I16.0 Hypertensive urgency; D63.1 Anemia in chronic kidney disease; E11.22 Type 2 diabetes mellitus with diabetic chronic kidney disease; R06.03 Acute respiratory distress; E87.5 Hyperkalemia; E78.5 Hyperlipidemia, unspecified; I25.10 Atherosclerotic heart disease of native coronary artery without angina pectoris; Z87.891 Personal history of nicotine dependence; Z87.440 Personal history of urinary (tract) infections; Z91.11 Patient's noncompliance with dietary regimen; Z95.1 Presence of aortocoronary bypass graft; Z99.2 Dependence on renal dialysis; Z79.899 Other long term (current) drug therapy; Z79.02 Long term (current) use of antithrombotics/antiplatelets; Z79.82 Long term (current) use of aspirin; Z79.84 Long term (current) use of oral hypoglycemic drugs; I69.328 Other speech and language deficits following cerebral infarction; Z20.822 Contact with and (suspected) exposure to COVID-19
CPT/HCPCS: 36415; 36600; 71045; 80048; 80053; 80305; 81003; 82375; 82550; 82553; 82805; 82962; 83036; 83735; 83880; 84100; 84132; 84484; 85025; 85027; 85347; 85520; 86705; 86709; 86803; 86850; 86900; 86920; 87340; 87426; 93005; 93458; 93880; 93970; 94640; 97110; 97116; 97162; 97164; 97530; 99291; C1729; C1751; C1758; C1769; C1887; C1893; J0690; J0885; J1100; J1170; J1265; J1644; J1650; J1815; J2250; J2270; J2405; J2440; J2704; J2710; J3010; J3475; J3480; J3490; J7050; J7060; L3908; P9016; P9047; Q9967

== ENCOUNTER 2021-04-08 01:24 | Emergency (ER) | payer MEDICARE, MEDICAID ==
[~2021-04-08] VITALS: Ht 167.6 cm; Wt 73.0 kg
[~2021-04-08 01:24] MED LIST changes: +ACET-2708 MT; -AMLO10TA80 PO; +ASPI-1497 MT; +CLOP-31 MT; +COR3 MT; -LEVO250T58 MT; +LIP40 MT; -LOSA25TA3 MT; -METO25TA6 MT; -OMEP40CA12 MT
[2021-04-08] MEDS ORDERED: METOCLOPRAMIDE HCL 10MG/2ML VIAL IV ONE (02:00)
[2021-04-08] MEDS ORDERED: DIPHENHYDRAMINE 50MG/ML VIAL IV ONE (02:00)
[2021-04-08 02:22] LABS: BASOPHILS % 0.9 % (0.0-2.0); EOSINOPHILS % 4.4 % (0.0-5.0); HEMATOCRIT. 37.5 % (36.0-48.0); HEMOGLOBIN. 11.8 g/dL (12.0-16.0); LYMPHOCYTES % 22.5 % (20.0-50.0); MEAN CORPUSCULAR HEMOGLOBIN 29.3 pg (28.0-32.0); MEAN CORPUSCULAR VOLUME 93.2 fL (81.0-99.0); MEAN PLATELET VOLUME 6.9 fl (7.4-10.4); MONOCYTES % 11.3 % (2.0-8.0); NEUTROPHILS % 60.9 % (40.0-76.0); PLATELET 176 x1000/uL (130-400); RED BLOOD CELL COUNT 4.02 mill/uL (4.2-5.4); RED CELL DISTRIBUTION WIDTH 18.2 % (11.6-14.6)
[2021-04-08 02:30] LABS: CHLORIDE 101 mEq/L (98-107)
[2021-04-08] MEDS ORDERED: IBUP-2028 MT (05:46)
[2021-04-08] MEDS ORDERED: IBUPROFEN 400MG TABLET PO ONE (06:00)
[2021-04-08 06:05] VITALS: BP 172/70
== END 2021-04-08 06:34 | disposition home or self-care (01) ==
LOC: ER 01:24
DX: E11.22 Type 2 diabetes mellitus with diabetic chronic kidney disease (principal); I12.0 Hypertensive chronic kidney disease with stage 5 chronic kidney disease or end stage renal disease; R51.9 Headache, unspecified; N18.6 End stage renal disease; Z99.2 Dependence on renal dialysis; Z79.899 Other long term (current) drug therapy
CPT/HCPCS: 36415; 70450; 80053; 85025; 93005; 96374; 96375; 99285; J1200; J2765

== ENCOUNTER 2021-05-16 16:50 | Inpatient (IN) | payer MEDICARE, MEDICAID ==
[~2021-05-16] VITALS: Ht 167.6 cm; Wt 64.0 kg
[~2021-05-16 16:50] MED LIST changes: +IBUP-2028 MT
[2021-05-16 18:18] LABS: BASOPHILS % 1.1 % (0.0-2.0); EOSINOPHILS % 1.9 % (0.0-5.0); HEMATOCRIT. 38.5 % (36.0-48.0); HEMOGLOBIN. 12.5 g/dL (12.0-16.0); LYMPHOCYTES % 25.8 % (20.0-50.0); MEAN CORPUSCULAR HEMOGLOBIN 28.1 pg (28.0-32.0); MEAN PLATELET VOLUME 7.1 fl (7.4-10.4); MONOCYTES % 13.9 % (2.0-8.0); NEUTROPHILS % 57.3 % (40.0-76.0); PLATELET 226 x1000/uL (130-400); RED BLOOD CELL COUNT 4.43 mill/uL (4.2-5.4); RED CELL DISTRIBUTION WIDTH 17.2 % (11.6-14.6)
[2021-05-16 18:24] LABS: CHLORIDE 97 mEq/L (98-107)
[2021-05-16 18:28] LABS: ETHANOL BLOOD < 10 mg/dL
[2021-05-16] MEDS ORDERED: ASPIRIN 81MG TABLET PO NR (22:30)
[2021-05-17] VITALS (9 sets, daily range): BP systolic 125–143; BP diastolic 64–85
[2021-05-17] MEDS ORDERED: LOSA100T32 PO (09:42)
[2021-05-17] MEDS ORDERED: SIMV-46 MT (09:42)
[2021-05-17] MEDS ORDERED: AMLO10TA80 PO (09:42)
[2021-05-17] MEDS ORDERED: METO100T16 PO (09:42)
[2021-05-17] MEDS ORDERED: METF-414 MT (09:42)
[2021-05-17] MEDS ORDERED: ASPI-1497 PO (09:42)
[2021-05-17] MEDS ORDERED: AMLODIPINE 10MG TABLET PO SCH (10:30)
[2021-05-17] MEDS ORDERED: METO-385 PO (10:46)
[2021-05-17] MEDS ORDERED: DEXTROSE 50% WATER 50ML SYRINGE IV PRN (11:30)
[2021-05-17] MEDS ORDERED: MAGNESIUM/ALUMINUM HYDROXIDE/SIMETHICONE 30ML UDC PO PRN (11:30)
[2021-05-17] MEDS ORDERED: CLONIDINE 0.1MG TABLET PO PRN (11:30)
[2021-05-17] MEDS ORDERED: DIPHENHYDRAMINE 50MG/ML VIAL IV PRN (11:30)
[2021-05-17] MEDS ORDERED: ONDANSETRON HCL 4MG/2ML INJ IV PRN (11:30)
[2021-05-17] MEDS ORDERED: LORAZEPAM 0.5MG TABLET PO PRN (11:30)
[2021-05-17] MEDS ORDERED: ACETAMINOPHEN 325MG TABLET PO PRN (11:30)
[2021-05-17] MEDS ORDERED: NA PHOS,M-B/NA PHOS,DI-BA ENEMA 118ML PR PRN (11:30)
[2021-05-17] MEDS ORDERED: ACETAMINOPHEN 650MG SUPP PR PRN (11:30)
[2021-05-17] MEDS ORDERED: HYDROCODONE/ACETAMINOPHEN 5/325MG TABLET PO PRN (11:30)
[2021-05-17] MEDS ORDERED: GUAIFENESIN 200MG/10ML SUGAR FREE UDC PO PRN (11:30)
[2021-05-17] MEDS ORDERED: DOCUSATE SODIUM 100MG CAPSULE PO PRN (11:30)
[2021-05-17] MEDS ORDERED: IPRATROPIUM/ALBUTEROL 0.5-3(2.5)MG/3ML NEB NEB PRN (11:30)
[2021-05-17] MEDS ORDERED: MORPHINE SULFATE 2 MG/ML CPJ (NOT FOR IM USE) IV PRN (11:30)
[2021-05-17] MEDS: BLOOD SUGAR DIAGNOSTIC STRIP TEST SCH ×3 (12:10→20:59)
[2021-05-17] MEDS ORDERED: NALOXONE HCL 0.4MG/ML VIAL IV PRN (12:15)
[2021-05-17] MEDS: INSULIN LISPRO 100 UNITS/ML SUBCUT SCH ×3 (12:40→21:04)
[2021-05-17] MEDS: ENOXAPARIN 30MG/0.3ML SYR SUBCUT SCH (13:35)
[2021-05-17 13:55] LABS: HEPATITIS B SURFACE ANTIGEN NEGATIVE
[2021-05-17 15:12] LABS: *AMPHETAMINES SCREEN URINE NEGATIVE (NEGATIVE); *BARBITURATES SCREEN URINE NEGATIVE (NEGATIVE); *BENZODIAZEPINES SCREEN URINE NEGATIVE (NEGATIVE); *COCAINE SCREEN URINE NEGATIVE (NEGATIVE); CANNABINOID URINE SCREEN NEGATIVE (NEGATIVE); METHADONE URINE SCREEN NEGATIVE (NEGATIVE); OPIATES URINE SCREEN NEGATIVE (NEGATIVE)
[2021-05-17 15:13] LABS: PHENCYCLIDINE URINE SCREEN NEGATIVE (NEGATIVE)
[2021-05-17] MEDS: GABAPENTIN 100MG CAPSULE PO SCH ×2 (15:49→20:55)
[2021-05-17 16:24] LABS: CREATINE KINASE 56 IU/L (26-192)
[2021-05-17 16:25] LABS: CREATINE KINASE MB FRACTION 1.6 ng/mL (0.5-3.6)
[2021-05-17] MEDS: FAMOTIDINE 20MG TABLET PO SCH (20:55)
[2021-05-17] MEDS: METOPROLOL TARTRATE 25MG TABLET PO SCH (20:56)
[2021-05-17] MEDS: ATORVASTATIN CALCIUM 20MG TABLET PO SCH (20:59)
[2021-05-17] MEDS ORDERED: MEDICATION NOT ON FORMULARY EA (Simvastatin 40 MG) PO SCH (21:00)
[2021-05-18] VITALS (8 sets, daily range): BP systolic 100–180; BP diastolic 44–89
[2021-05-18] MEDS: INSULIN LISPRO 100 UNITS/ML SUBCUT SCH ×4 (07:40→21:00)
[2021-05-18] MEDS: BLOOD SUGAR DIAGNOSTIC STRIP TEST SCH ×4 (07:42→20:56)
[2021-05-18] MEDS ORDERED: HYDRALAZINE 20MG/ML VIAL IV SCH (08:30)
[2021-05-18] MEDS: GABAPENTIN 100MG CAPSULE PO SCH ×2 (08:41→20:55)
[2021-05-18] MEDS: METOPROLOL TARTRATE 25MG TABLET PO SCH ×2 (08:41→20:56)
[2021-05-18] MEDS: ENOXAPARIN 30MG/0.3ML SYR SUBCUT SCH (08:46)
[2021-05-18] MEDS ORDERED: AMLODIPINE 5MG TABLET PO SCH ×2 (09:00)
[2021-05-18] MEDS ORDERED: METOPROLOL TARTRATE 100MG TABLET PO SCH (09:00)
[2021-05-18] MEDS ORDERED: ASPIRIN 81MG TABLET PO SCH (09:00)
[2021-05-18] MEDS ORDERED: GABA-529 MT (14:09)
[2021-05-18 17:13] LABS: HEMATOCRIT. 40.2 % (36.0-48.0); HEMOGLOBIN. 12.3 g/dL (12.0-16.0); MEAN CORPUSCULAR HEMOGLOBIN 27.4 pg (28.0-32.0); MEAN CORPUSCULAR VOLUME 89.2 fL (81.0-99.0); MEAN PLATELET VOLUME 7.6 fl (7.4-10.4); PLATELET 228 x1000/uL (130-400); RED CELL DISTRIBUTION WIDTH 17.1 % (11.6-14.6)
[2021-05-18 17:23] LABS: CHLORIDE 99 mEq/L (98-107)
[2021-05-18 17:33] LABS: CREATINE KINASE 53 IU/L (26-192)
[2021-05-18 17:36] LABS: CREATINE KINASE MB FRACTION < 1.0 ng/mL (0.5-3.6)
[2021-05-18] MEDS ORDERED: HEPARIN SODIUM 1,000 UNIT/1ML VIAL IV NR (19:30)
[2021-05-18 20:00] LABS: PLATELET ESTIMATE NORMAL
[2021-05-18] MEDS: ATORVASTATIN CALCIUM 20MG TABLET PO SCH (20:56)
[2021-05-18] MEDS: FAMOTIDINE 20MG TABLET PO SCH (20:56)
[2021-05-18] MEDS ORDERED: AMLODIPINE 2.5MG TABLET PO SCH (21:00)
== END 2021-05-18 20:36 | disposition home health service (06) | DRG 73 ==
LOC: ER 16:50 → MICUSO 22:18 → 8WST 05-17 09:36
PROVIDERS: ADMIT Internal Medicine; ATTEND Internal Medicine
PROC: 5A1D70Z Performance of Urinary Filtration, Intermittent, Less than 6 Hours Per Day (ICD-10-PCS; principal; 2021-05-18)
DX: E11.40 Type 2 diabetes mellitus with diabetic neuropathy, unspecified (principal); N18.6 End stage renal disease; I13.2 Hypertensive heart and chronic kidney disease with heart failure and with stage 5 chronic kidney disease, or end stage renal disease; I50.22 Chronic systolic (congestive) heart failure; I42.9 Cardiomyopathy, unspecified; E11.22 Type 2 diabetes mellitus with diabetic chronic kidney disease; I25.10 Atherosclerotic heart disease of native coronary artery without angina pectoris; R27.0 Ataxia, unspecified; M47.816 Spondylosis without myelopathy or radiculopathy, lumbar region; E78.5 Hyperlipidemia, unspecified; D64.9 Anemia, unspecified; I34.0 Nonrheumatic mitral (valve) insufficiency; D17.79 Benign lipomatous neoplasm of other sites; R00.1 Bradycardia, unspecified; M48.02 Spinal stenosis, cervical region; Z20.822 Contact with and (suspected) exposure to COVID-19; R53.1 Weakness; M48.061 Spinal stenosis, lumbar region without neurogenic claudication; Z95.1 Presence of aortocoronary bypass graft; I69.322 Dysarthria following cerebral infarction; I69.30 Unspecified sequelae of cerebral infarction; Z99.2 Dependence on renal dialysis; I25.2 Old myocardial infarction; Z79.899 Other long term (current) drug therapy; Z79.02 Long term (current) use of antithrombotics/antiplatelets; Z79.82 Long term (current) use of aspirin; Z87.891 Personal history of nicotine dependence
CPT/HCPCS: 36415; 71045; 72128; 72131; 80053; 80305; 80320; 82550; 82553; 82962; 83735; 83880; 84443; 84484; 85025; 86705; 86709; 86803; 87340; 87426; 93005; 93306; 93970; 97162; 99291; J0360; J1644; J1650; J1815; G0480

== ENCOUNTER 2021-05-25 02:59 | Inpatient (IN) | payer MEDICARE, MEDICAID ==
[~2021-05-25] VITALS: Ht 167.6 cm; Wt 87.1 kg
[~2021-05-25 02:59] MED LIST changes: -ACET-2708 MT; +AMLO10TA80 PO; -ASPI-1497 MT; -CLOP-31 MT; -COR3 MT; +GABA-529 MT; -IBUP-2028 MT; -LIP40 MT; +LOSA100T32 PO; +METF-414 MT; -METF-874 MT; +METO-385 PO; +SIMV-46 MT
[2021-05-25 04:12] LABS: BASOPHILS % 0.8 % (0.0-2.0); EOSINOPHILS % 0.2 % (0.0-5.0); HEMATOCRIT. 39.8 % (36.0-48.0); HEMOGLOBIN. 12.3 g/dL (12.0-16.0); LYMPHOCYTES % 15.6 % (20.0-50.0); MEAN CORPUSCULAR HEMOGLOBIN 27.8 pg (28.0-32.0); MEAN CORPUSCULAR VOLUME 89.6 fL (81.0-99.0); MEAN PLATELET VOLUME 7.8 fl (7.4-10.4); MONOCYTES % 3.7 % (2.0-8.0); NEUTROPHILS % 79.7 % (40.0-76.0); PLATELET 247 x1000/uL (130-400); RED BLOOD CELL COUNT 4.45 mill/uL (4.2-5.4); RED CELL DISTRIBUTION WIDTH 17.3 % (11.6-14.6)
[2021-05-25 04:23] LABS: CHLORIDE 94 mEq/L (98-107)
[2021-05-25] MEDS ORDERED: CALCIUM CHLORIDE 1GM/10ML SYR IV NR (06:00)
[2021-05-25] MEDS ORDERED: SODIUM POLYSTYRENE SULFONATE 15 G/60 ML BOT PO NR (06:00)
[2021-05-25] MEDS ORDERED: INSULIN REGULAR (HUMULIN R) 300UNITS/3ML VIAL IV NR (06:00)
[2021-05-25] MEDS ORDERED: DEXTROSE 50% WATER 50ML SYRINGE IV NR (06:00)
[2021-05-25] MEDS ORDERED: FUROSEMIDE 100MG/10ML VIAL IV NR (06:00)
[2021-05-25 10:00] VITALS: BP 101/45
[2021-05-25] MEDS ORDERED: CEFTRIAXONE 1 G PREMIX 50 ML IV SCH (11:15)
[2021-05-25] MEDS ORDERED: ACETAMINOPHEN 325MG TABLET PO PRN (11:15)
[2021-05-25] MEDS ORDERED: DIPHENHYDRAMINE 50MG/ML VIAL IV PRN (11:15)
[2021-05-25] MEDS ORDERED: GUAIFENESIN 200MG/10ML SUGAR FREE UDC PO PRN (11:15)
[2021-05-25] MEDS ORDERED: MAGNESIUM/ALUMINUM HYDROXIDE/SIMETHICONE 30ML UDC PO PRN (11:15)
[2021-05-25] MEDS ORDERED: ONDANSETRON HCL 4MG/2ML INJ IV PRN (11:15)
[2021-05-25] MEDS ORDERED: DOCUSATE SODIUM 100MG CAPSULE PO PRN (11:15)
[2021-05-25] MEDS ORDERED: CLONIDINE 0.1MG TABLET PO PRN (11:15)
[2021-05-25] MEDS ORDERED: LORAZEPAM 0.5MG TABLET PO PRN (11:15)
[2021-05-25] MEDS ORDERED: ACETAMINOPHEN 650MG SUPP PR PRN (11:15)
[2021-05-25] MEDS ORDERED: IPRATROPIUM/ALBUTEROL 0.5-3(2.5)MG/3ML NEB NEB PRN (11:15)
[2021-05-25] MEDS ORDERED: CARVEDILOL 3.125 MG TABLET PO SCH (11:45)
[2021-05-25 12:00] VITALS: BP 103/40
[2021-05-25] MEDS: CLOPIDOGREL 75MG TABLET PO SCH (12:14)
[2021-05-25] MEDS: PANTOPRAZOLE 40MG DR TABLET PO SCH (12:14)
[2021-05-25] MEDS: ASPIRIN 81MG EC TABLET PO SCH (12:14)
[2021-05-25 12:31] LABS: HEPATITIS B SURFACE ANTIGEN NEGATIVE
[2021-05-25] MEDS ORDERED: CEFTRIAXONE 1,000 MG in DEXTROSE 5% WATER 50 ML IV SCH (13:00)
[2021-05-25] MEDS ORDERED: AZITHROMYCIN 500 MG in DEXT 5% WATER 250 ML IV SCH (13:00)
[2021-05-25 13:07] LABS: BG BASE EXCESS -16.2 mmol/L (-2.0-2.0); BG CARBOXYHEMOGLOBIN 0.7 % (0.5-1.5); BG DEOXYHEMOGLOBIN 8.7 % (0.0-5.0); BG FRACTION INSPIRED OXYGEN 28; BG HCO3 ACT 11.4 mmol/L (22.0-26.0); BG METHEMOGLOBIN 0.1 % (0.0-1.5); BG OXYGEN SATURATION 91.2 % (92.0-98.5); BG OXYHEMOGLOBIN 90.5 % (94.0-97.0); BG PCO2 33.2 mmHg (35.0-45.0); BG PH 7.154 (7.350-7.450); BG PO2 73.8 mmHg (75.0-100.0); BG SAMPLE SITE RIGHT RADIAL; BG TOTAL HEMOGLOBIN 11.9 g/dL (12.0-18.0); BG VENT MODE NASAL CANNULA
[2021-05-25] MEDS ORDERED: SODIUM BICARBONATE 8.4% 1 MEQ/ML 50ML SYR IV NR ×2 (13:15→15:53)
[2021-05-25] MEDS: HEPARIN 5000 UNITS/ML VIAL SUBCUT SCH ×2 (14:08→21:51)
[2021-05-25 15:21] LABS: BG BASE EXCESS -13.8 mmol/L (-2.0-2.0); BG CARBOXYHEMOGLOBIN 0.3 % (0.5-1.5); BG DEOXYHEMOGLOBIN 2.3 % (0.0-5.0); BG FRACTION INSPIRED OXYGEN 32; BG HCO3 ACT 12.3 mmol/L (22.0-26.0); BG METHEMOGLOBIN 0.3 % (0.0-1.5); BG OXYGEN SATURATION 97.7 % (92.0-98.5); BG OXYHEMOGLOBIN 97.1 % (94.0-97.0); BG PCO2 29.8 mmHg (35.0-45.0); BG PH 7.235 (7.350-7.450); BG SAMPLE SITE RIGHT RADIAL; BG TOTAL HEMOGLOBIN 11.8 g/dL (12.0-18.0); BG VENT MODE NASAL CANNULA
[2021-05-25 16:00] VITALS: BP 97/45
[2021-05-25 17:53] LABS: BG BASE EXCESS -12.5 mmol/L (-2.0-2.0); BG CARBOXYHEMOGLOBIN 0.1 % (0.5-1.5); BG DEOXYHEMOGLOBIN 4.4 % (0.0-5.0); BG FRACTION INSPIRED OXYGEN 30; BG HCO3 ACT 13.3 mmol/L (22.0-26.0); BG METHEMOGLOBIN 0.1 % (0.0-1.5); BG OXYGEN SATURATION 95.6 % (92.0-98.5); BG OXYHEMOGLOBIN 95.4 % (94.0-97.0); BG PCO2 30.4 mmHg (35.0-45.0); BG PH 7.258 (7.350-7.450); BG PO2 93.2 mmHg (75.0-100.0); BG SAMPLE SITE RIGHT RADIAL; BG TOTAL HEMOGLOBIN 11.7 g/dL (12.0-18.0); BG VENT MODE NASAL CANNULA
[2021-05-25 18:03] LABS: D-DIMER 0.78 mg/L FEU (<0.50); INR 1.2; PARTIAL THROMBOPLASTIN TIME 31.6 sec (23.4-31.0); PROTHROMBIN TIME 12.6 sec (9.6-11.0)
[2021-05-25 20:00] VITALS: BP 105/51
[2021-05-25] MEDS: CARVEDILOL 3.125 MG TABLET PO SCH (21:00)
[2021-05-25] MEDS ORDERED: DEXTROSE 50% WATER 50ML SYRINGE IV PRN (21:15)
[2021-05-25] MEDS: IPRATROPIUM/ALBUTEROL 0.5-3(2.5)MG/3ML NEB NEB SCH (21:33)
[2021-05-26] VITALS: BP 104/62
[2021-05-26] MEDS: IPRATROPIUM/ALBUTEROL 0.5-3(2.5)MG/3ML NEB NEB SCH ×4 (02:50→21:46)
[2021-05-26 04:00] VITALS: BP 102/59
[2021-05-26] MEDS: HEPARIN 5000 UNITS/ML VIAL SUBCUT SCH ×3 (06:10→21:41)
[2021-05-26] MEDS: PANTOPRAZOLE 40MG DR TABLET PO SCH (06:10)
[2021-05-26] MEDS: BLOOD SUGAR DIAGNOSTIC STRIP TEST SCH ×4 (06:11→21:16)
[2021-05-26] MEDS: INSULIN LISPRO 100 UNITS/ML SUBCUT SCH ×4 (06:18→21:00)
[2021-05-26 08:35] LABS: HEMATOCRIT. 35.5 % (36.0-48.0); HEMOGLOBIN. 11.2 g/dL (12.0-16.0); MEAN CORPUSCULAR HEMOGLOBIN 28.4 pg (28.0-32.0); MEAN CORPUSCULAR VOLUME 90.2 fL (81.0-99.0); MEAN PLATELET VOLUME 7.8 fl (7.4-10.4); PLATELET 225 x1000/uL (130-400); RED BLOOD CELL COUNT 3.94 mill/uL (4.2-5.4); RED CELL DISTRIBUTION WIDTH 17.4 % (11.6-14.6)
[2021-05-26 08:51] LABS: CHLORIDE 90 mEq/L (98-107)
[2021-05-26 08:59] LABS: CREATINE KINASE 214 IU/L (26-192)
[2021-05-26] MEDS ORDERED: LOSARTAN POTASSIUM 25 MG TABLET PO SCH ×2 (09:00)
[2021-05-26] MEDS: CARVEDILOL 3.125 MG TABLET PO SCH ×2 (09:00→21:00)
[2021-05-26] MEDS: CLOPIDOGREL 75MG TABLET PO SCH (09:00)
[2021-05-26] MEDS: ASPIRIN 81MG EC TABLET PO SCH (09:00)
[2021-05-26 09:02] LABS: CREATINE KINASE MB FRACTION 35.6 ng/mL (0.5-3.6)
[2021-05-26 11:00] LABS: PLATELET ESTIMATE NORMAL
[2021-05-26] MEDS ORDERED: LOSARTAN POTASSIUM 25 MG TABLET PO ONE (13:00)
[2021-05-26] MEDS ORDERED: VANCOMYCIN 1500MG in DEXTROSE 5% WATER 250ML IV NR (13:30)
[2021-05-26 13:35] LABS: BG CARBOXYHEMOGLOBIN 0.1 % (0.5-1.5); BG DEOXYHEMOGLOBIN 4.7 % (0.0-5.0); BG HCO3 ACT 16.4 mmol/L (22.0-26.0); BG METHEMOGLOBIN 0.3 % (0.0-1.5); BG OXYGEN SATURATION 95.3 % (92.0-98.5); BG OXYHEMOGLOBIN 94.9 % (94.0-97.0); BG PCO2 30.2 mmHg (35.0-45.0); BG PH 7.354 (7.350-7.450); BG SAMPLE SITE RIGHT RADIAL; BG TOTAL HEMOGLOBIN 11.3 g/dL (12.0-18.0); BG VENT MODE NASAL CANNULA
[2021-05-26] MEDS ORDERED: PIPERACILLIN/TAZOBACTAM 3.375 G in DEXTROSE 5% WATER 50 ML IV SCH (15:30)
[2021-05-26 16:00] VITALS: BP 100/60
[2021-05-26] MEDS ORDERED: CEFTRIAXONE 1,000 MG in DEXTROSE 5% WATER 50 ML IV SCH (16:30)
[2021-05-26] MEDS ORDERED: AZITHROMYCIN 500 MG in DEXT 5% WATER 250 ML IV SCH (17:00)
[2021-05-26] MEDS: HYDROCODONE/ACETAMINOPHEN 5/325MG TABLET PO PRN (17:30)
[2021-05-26 20:00] VITALS: BP 106/38
[2021-05-26] MEDS ORDERED: NALOXONE HCL 0.4MG/ML VIAL IV PRN (20:30)
[2021-05-27] VITALS (9 sets, daily range): BP systolic 88–157; BP diastolic 51–92
[2021-05-27] MEDS: HYDROCODONE/ACETAMINOPHEN 5/325MG TABLET PO PRN ×3 (00:58→18:39)
[2021-05-27] MEDS: PIPERACILLIN/TAZOBACTAM 3.375 G in DEXTROSE 5% WATER 50 ML IV SCH ×2 (01:23→10:30)
[2021-05-27] MEDS: IPRATROPIUM/ALBUTEROL 0.5-3(2.5)MG/3ML NEB NEB SCH ×4 (01:35→21:24)
[2021-05-27] MEDS: PANTOPRAZOLE 40MG DR TABLET PO SCH (05:45)
[2021-05-27] MEDS: HEPARIN 5000 UNITS/ML VIAL SUBCUT SCH (05:45)
[2021-05-27] MEDS ORDERED: PIPERACILLIN/TAZOBACTAM 3.375 G in DEXTROSE 5% WATER 50 ML IV SCH (06:00)
[2021-05-27] MEDS: INSULIN LISPRO 100 UNITS/ML SUBCUT SCH ×4 (07:15→21:00)
[2021-05-27] MEDS ORDERED: HEPARIN SODIUM 1,000 UNIT/1ML VIAL IV ONE (09:21)
[2021-05-27] MEDS: CLOPIDOGREL 75MG TABLET PO SCH (09:37)
[2021-05-27] MEDS: CARVEDILOL 3.125 MG TABLET PO SCH ×2 (09:37→21:00)
[2021-05-27] MEDS: ASPIRIN 81MG EC TABLET PO SCH (09:37)
[2021-05-27] MEDS ORDERED: DEXTROSE 5% WATER 1,000 ML IV SCH (09:54)
[2021-05-27] MEDS ORDERED: MIDAZOLAM HCL 2 MG/2 ML VIAL ONE (10:43)
[2021-05-27] MEDS ORDERED: FENTANYL CITRATE/PF 50MCG/ML 2ML VIAL ONE (10:43)
[2021-05-27] MEDS ORDERED: IODIXANOL 320MG/ML 100 ML BOTTLE IV ONE (10:44)
[2021-05-27] MEDS ORDERED: LIDOCAINE HCL 1% 20ML VIAL (Pyxis) INJ ONE (10:44)
[2021-05-27] MEDS ORDERED: IOHEXOL-300 100 ML BOTTLE ONE (10:44)
[2021-05-27] MEDS: BLOOD SUGAR DIAGNOSTIC STRIP TEST SCH ×2 (11:45→17:15)
[2021-05-27] MEDS ORDERED: ACETAMINOPHEN 325MG TABLET PO PRN (12:00)
[2021-05-27] MEDS ORDERED: ATROPINE SULFATE 1MG/10ML SYR IV PRN (12:00)
[2021-05-27] MEDS ORDERED: ONDANSETRON HCL 4MG/2ML INJ IV PRN (12:00)
[2021-05-27] MEDS ORDERED: CLOPIDOGREL 75MG TABLET ONE (12:08)
[2021-05-27] MEDS ORDERED: ASPIRIN 325MG TABLET ONE (12:08)
[2021-05-27 13:04] LABS: BASOPHILS % 0.5 % (0.0-2.0); EOSINOPHILS % 0.2 % (0.0-5.0); HEMOGLOBIN. 10.4 g/dL (12.0-16.0); LYMPHOCYTES % 14.1 % (20.0-50.0); MEAN CORPUSCULAR VOLUME 86.2 fL (81.0-99.0); MEAN PLATELET VOLUME 7.5 fl (7.4-10.4); MONOCYTES % 12.7 % (2.0-8.0); NEUTROPHILS % 72.5 % (40.0-76.0); PLATELET 181 x1000/uL (130-400); RED BLOOD CELL COUNT 3.71 mill/uL (4.2-5.4); RED CELL DISTRIBUTION WIDTH 17.5 % (11.6-14.6)
[2021-05-27 21:50] LABS: BG CARBOXYHEMOGLOBIN 0.4 % (0.5-1.5); BG DEOXYHEMOGLOBIN 1.5 % (0.0-5.0); BG FRACTION INSPIRED OXYGEN 60; BG METHEMOGLOBIN 0.1 % (0.0-1.5); BG OXYGEN SATURATION 98.5 % (92.0-98.5); BG PCO2 45.7 mmHg (35.0-45.0); BG PH 7.338 (7.350-7.450); BG SAMPLE SITE RIGHT BRACHIAL
[2021-05-27] MEDS ORDERED: MANNITOL 20% 250 ML IV NR (23:00)
[2021-05-27] MEDS ORDERED: DOPAMINE 400MG/250ML PREMIX 250 ML IV PRN (23:00)
[2021-05-27] MEDS ORDERED: DEXAMETHASONE 10 MG/ML VIAL IV NR (23:15)
[2021-05-27] MEDS ORDERED: DEXAMETHASONE 10 MG/ML VIAL ONE (23:24)
[2021-05-28] VITALS (84 sets, daily range): BP systolic 89–149; BP diastolic 47–98
[2021-05-28 01:22] LABS: BG BASE EXCESS -1.3 mmol/L (-2.0-2.0); BG CARBOXYHEMOGLOBIN 0.2 % (0.5-1.5); BG FRACTION INSPIRED OXYGEN 100; BG HCO3 ACT 21.3 mmol/L (22.0-26.0); BG OXYHEMOGLOBIN 96.8 % (94.0-97.0); BG PCO2 29.5 mmHg (35.0-45.0); BG PH 7.476 (7.350-7.450); BG SAMPLE SITE RIGHT BRACHIAL; BG TOTAL HEMOGLOBIN 12.2 g/dL (12.0-18.0); BG VENT MODE VENT - AC
[2021-05-28] MEDS: DEXT 5%/0.45% NACL 1000ML 1,000 ML IV SCH ×2 (04:26→04:29)
[2021-05-28] MEDS: IPRATROPIUM/ALBUTEROL 0.5-3(2.5)MG/3ML NEB NEB SCH ×4 (04:33→20:26)
[2021-05-28 05:28] LABS: HEMATOCRIT. 36.4 % (36.0-48.0); HEMOGLOBIN. 11.8 g/dL (12.0-16.0); MEAN CORPUSCULAR VOLUME 86.3 fL (81.0-99.0); MEAN PLATELET VOLUME 7.6 fl (7.4-10.4); PLATELET 200 x1000/uL (130-400); RED BLOOD CELL COUNT 4.22 mill/uL (4.2-5.4); RED CELL DISTRIBUTION WIDTH 17.6 % (11.6-14.6)
[2021-05-28] MEDS: BLOOD SUGAR DIAGNOSTIC STRIP TEST SCH ×4 (06:07→21:00)
[2021-05-28] MEDS: INSULIN LISPRO 100 UNITS/ML SUBCUT SCH ×3 (06:38→17:00)
[2021-05-28] MEDS: PIPERACILLIN/TAZOBACTAM 3.375 G in DEXTROSE 5% WATER 50 ML IV SCH ×2 (07:02→08:44)
[2021-05-28] MEDS: PANTOPRAZOLE SODIUM 40 MG/VIAL IV SCH (08:50)
[2021-05-28] MEDS: CARVEDILOL 3.125 MG TABLET PO SCH ×2 (08:50→21:00)
[2021-05-28 09:24] LABS: PLATELET ESTIMATE NORMAL
[2021-05-28] MEDS ORDERED: VANCOMYCIN 750 MG in DEXT 5% WATER 250 ML IV NR (15:00)
[2021-05-29] VITALS (29 sets, daily range): BP systolic 86–121; BP diastolic 47–82
[2021-05-29] MEDS: PIPERACILLIN/TAZOBACTAM 3.375 G in DEXTROSE 5% WATER 50 ML IV SCH ×2 (00:38→08:49)
[2021-05-29] MEDS: INSULIN LISPRO 100 UNITS/ML SUBCUT SCH ×2 (00:39→06:51)
[2021-05-29] MEDS: IPRATROPIUM/ALBUTEROL 0.5-3(2.5)MG/3ML NEB NEB SCH ×2 (01:13→08:04)
[2021-05-29] MEDS ORDERED: DOPAMINE 800MG PREMIX (DOUBLE) 250 ML IV PRN (03:15)
[2021-05-29 06:04] LABS: HEMATOCRIT. 34.1 % (36.0-48.0); HEMOGLOBIN. 11.4 g/dL (12.0-16.0); MEAN CORPUSCULAR HEMOGLOBIN 28.6 pg (28.0-32.0); MEAN CORPUSCULAR VOLUME 85.4 fL (81.0-99.0); MEAN PLATELET VOLUME 7.8 fl (7.4-10.4); PLATELET 166 x1000/uL (130-400); RED BLOOD CELL COUNT 3.99 mill/uL (4.2-5.4); RED CELL DISTRIBUTION WIDTH 17.6 % (11.6-14.6)
[2021-05-29] MEDS: BLOOD SUGAR DIAGNOSTIC STRIP TEST SCH (06:45)
[2021-05-29] MEDS: PANTOPRAZOLE SODIUM 40 MG/VIAL IV SCH (08:49)
[2021-05-29] MEDS: CARVEDILOL 3.125 MG TABLET PO SCH (08:49)
[2021-05-29 09:05] LABS: PLATELET ESTIMATE NORMAL
[2021-05-29] MEDS ORDERED: CALCIUM CHLORIDE 1GM/10ML SYR IV ONE (09:15)
[2021-05-29] MEDS ORDERED: SODIUM BICARBONATE 8.4% 1 MEQ/ML 50ML SYR IV ONE (09:15)
[2021-05-29] MEDS ORDERED: LIDOCAINE HCL 2% 5ML SYRINGE IV ONE (09:15)
[2021-05-29] MEDS ORDERED: AMIODARONE HCL 50MG/ML 3ML VIAL IV ONE (09:15)
[2021-05-29] MEDS ORDERED: EPINEPHRINE 0.1MG/ML (1:10,000) 10ML SYR ONE (09:15)
[2021-05-29] MEDS ORDERED: ATROPINE SULFATE 1MG/10ML SYR ONE (09:15)
[2021-05-29 09:31] LABS: BG BASE EXCESS 0.4 mmol/L (-2.0-2.0); BG CARBOXYHEMOGLOBIN 0.3 % (0.5-1.5); BG DEOXYHEMOGLOBIN 4.5 % (0.0-5.0); BG FRACTION INSPIRED OXYGEN 60; BG HCO3 ACT 21.5 mmol/L (22.0-26.0); BG METHEMOGLOBIN 0.3 % (0.0-1.5); BG OXYGEN SATURATION 95.5 % (92.0-98.5); BG OXYHEMOGLOBIN 94.9 % (94.0-97.0); BG PH 7.552 (7.350-7.450); BG PO2 79.5 mmHg (75.0-100.0); BG SAMPLE SITE RIGHT RADIAL; BG VENT MODE VENT - AC
== END 2021-05-29 12:30 | DRG 246 ==
LOC: ER 02:59 → 5WST 06:41 → 3WST 05-27 12:11 → MICUNO 05-28 00:44
PROVIDERS: ADMIT Internal Medicine; ATTEND Internal Medicine
PROC: 5A1D70Z Performance of Urinary Filtration, Intermittent, Less than 6 Hours Per Day (ICD-10-PCS; 2021-05-26)
PROC: 027034Z Dilation of Coronary Artery, One Artery with Drug-eluting Intraluminal Device, Percutaneous Approach (ICD-10-PCS; principal; 2021-05-27)
PROC: B2111ZZ Fluoroscopy of Multiple Coronary Arteries using Low Osmolar Contrast (ICD-10-PCS; 2021-05-27)
PROC: B2131ZZ Fluoroscopy of Multiple Coronary Artery Bypass Grafts using Low Osmolar Contrast (ICD-10-PCS; 2021-05-27)
PROC: 4A023N7 Measurement of Cardiac Sampling and Pressure, Left Heart, Percutaneous Approach (ICD-10-PCS; 2021-05-27)
PROC: 5A12012 Performance of Cardiac Output, Single, Manual (ICD-10-PCS; 2021-05-27)
PROC: 5A1D70Z Performance of Urinary Filtration, Intermittent, Less than 6 Hours Per Day (ICD-10-PCS; 2021-05-27)
PROC: 0BH17EZ Insertion of Endotracheal Airway into Trachea, Via Natural or Artificial Opening (ICD-10-PCS; 2021-05-27)
PROC: 06HY33Z Insertion of Infusion Device into Lower Vein, Percutaneous Approach (ICD-10-PCS; 2021-05-27)
PROC: 3E0A3GC Introduction of Other Therapeutic Substance into Bone Marrow, Percutaneous Approach (ICD-10-PCS; 2021-05-27)
PROC: 5A1945Z Respiratory Ventilation, 24-96 Consecutive Hours (ICD-10-PCS; 2021-05-28)
PROC: 4A00X4Z Measurement of Central Nervous Electrical Activity, External Approach (ICD-10-PCS; 2021-05-29)
DX: I21.4 Non-ST elevation (NSTEMI) myocardial infarction (principal); J96.01 Acute respiratory failure with hypoxia; N18.6 End stage renal disease; I61.5 Nontraumatic intracerebral hemorrhage, intraventricular; I82.629 Acute embolism and thrombosis of deep veins of unspecified upper extremity; I13.2 Hypertensive heart and chronic kidney disease with heart failure and with stage 5 chronic kidney disease, or end stage renal disease; I25.110 Atherosclerotic heart disease of native coronary artery with unstable angina pectoris; I46.9 Cardiac arrest, cause unspecified; E11.22 Type 2 diabetes mellitus with diabetic chronic kidney disease; E11.649 Type 2 diabetes mellitus with hypoglycemia without coma; E78.5 Hyperlipidemia, unspecified; E87.5 Hyperkalemia; I25.2 Old myocardial infarction; I25.5 Ischemic cardiomyopathy; I34.0 Nonrheumatic mitral (valve) insufficiency; Z20.822 Contact with and (suspected) exposure to COVID-19; I50.9 Heart failure, unspecified; J44.9 Chronic obstructive pulmonary disease, unspecified; M48.02 Spinal stenosis, cervical region; M48.061 Spinal stenosis, lumbar region without neurogenic claudication; Z99.2 Dependence on renal dialysis; Z95.1 Presence of aortocoronary bypass graft; Z87.891 Personal history of nicotine dependence; Z86.73 Personal history of transient ischemic attack (TIA), and cerebral infarction without residual deficits; Z79.899 Other long term (current) drug therapy; Z79.84 Long term (current) use of oral hypoglycemic drugs
CPT/HCPCS: 36415; 36600; 71045; 80048; 80053; 80061; 80202; 82375; 82550; 82553; 82805; 82962; 83880; 84132; 84443; 84484; 85025; 85347; 85379; 85384; 86705; 86709; 86803; 87340; 87426; 92928; 93005; 93459; 93970; 94640; 95816; 99285; C1725; C1760; C1769; C1874; C1887; C1893; C9113; J0282; J0456; J0461; J0696; J1100; J1200; J1265; J1644; J1815; J1940; J2250; J2543; J3010; J3370; J3490; J7060; J7070; Q9967